=== PATIENT | male | born 1960 | race Caucasian/White ===

== ENCOUNTER → 2018-08-06 | Outpatient (CLI) | payer BC, OTHER | LOC: RAD 11:13 | DX: M25.461 Effusion, right knee (principal); M25.462 Effusion, left knee ==

== ENCOUNTER 2018-11-18 05:45 | Day surgery (SDC) | payer BC, OTHER ==
[~2018-11-18] VITALS: Ht 185.4 cm; Wt 127.0 kg
[~2018-11-18 05:45] MED LIST: ASPIR 8181 MG PO; FARXIGA10 MG PO; FENOFIBRIC ACI135 MG PO; LISINOPRIL40 MG PO; METFORMIN HCL1000 MG PO; MITIGARE0.6 MG PO; MOBIC7.5 MG PO; PERCOCET 7.5-31 EACH PO; SIMVASTATIN40 MG PO; TOPROL XL100 MG PO; VASCEPA1 GM PO; ZYLOPRIM300 MG PO
[2018-11-18 12:32] VITALS: BP 168/93
[2018-11-18] MEDS ORDERED: NORCO 5-325 TA1 EACH PO (13:49)
[2018-11-18 14:22] VITALS: BP 168/93
--- NOTE | 2018-11-19 08:35 | EKG ---
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 : 1960 Requested By: Juanpablo Perera Order Number: [id number] MD: Go Garrido Measurements Intervals Goehner Rate: 90 P: -37 NE: 203 QRS: -20 QRSD: 89 T: -3 QT: 336 QTc: 411 Interpretive Statements Sinus rhythm Borderline prolonged NE interval Inferior infarct, old Compared to ECG 04/13/2003 10:59:35 Inferior Q waves are more prominent Electronically Signed On 11-19-2018 8:35:36 CDT by Go Garrido [email or web address] ��������������������������������������������� <ELECTRONICALLY SIGNED> ���������������������������������������� By: Go Garrido MD, [facility] ��������������������������������������������� 11/19/18 0835 1153 1153 Go Garrido MD, [facility] /EPI
--- NOTE | 2018-12-03 11:20 | O ---
Former[facility] [place] [address] OPERATIVE REPORT Name: ERNESTO AYALA III [id number] Admission: 11/18/18 ������������������ Attend Phys: Juanpablo Perera MD Discharge: 11/18/18 ������������������ Date of : 58 Report #: [id number] THIS REPORT FOR: //name// CC: Berry Perera DATE OF SERVICE: 11/18/2018 PREOPERATIVE DIAGNOSIS: Right knee medial meniscus tear. POSTOPERATIVE DIAGNOSES: 1. Right knee medial meniscus tear. 2. Pathologic medial plica, right knee. 3. Grade 4 chondromalacia of the medial femoral condyle. PROCEDURE: 1. Right knee arthroscopy with partial medial meniscectomy. 2. Medial plica excision. SURGEON: Juanpablo ePrera MD. EGG SEPARATOR: Komal Ellis PA-C. ANESTHESIA: LMA. TOURNIQUET TIME: Approximately 15 minutes. COMPLICATIONS: None. SPECIMENS: None. CONDITION UPON LEAVING THE OPERATING ROOM: Stable. INDICATIONS FOR PROCEDURE: The patient is a 58-year-old gentleman who has had medial-sided right knee pain. He had an MRI scan shown him to have a tear of the posterior horn of the medial meniscus and after discussion with him, he elected for right knee arthroscopy with partial medial meniscectomy and debridement as needed. DESCRIPTION OF PROCEDURE: Risks, benefits, alternatives and complications were discussed in detail with the patient including but not limited to risk of anesthesia, risk of damage to nerves, arteries, blood vessels, risk for infection, bleeding, risk for continued knee pain, need for reoperation. Informed consent was obtained from the patient. Right knee was appropriately marked in the preoperative holding area. IV Ancef was given for preoperative antibiotics. He was brought to the operating room and placed in supine position [address] [address] OPERATIVE REPORT Name: JAMIEERNESTO Lorenza SARAN Room #: DEP [facility] Matt#: [id number] Admission: 11/18/18 ������������������ Attend Phys: Juanpablo Perera MD Discharge: 11/18/18 ������������������ Date of : 58 Report #: [id number] on the operating room table. LMA anesthesia was induced without complication. Tourniquet was placed on the right thigh. Right lower extremity was prepped and draped in normal sterile fashion. Timeout was performed properly identifying the patient and procedure as well as instrumentation. All in the operating room were in agreement. Right lower extremity was exsanguinated, tourniquet was inflated. Tourniquet time was approximately 15 minutes. Standard anterolateral portal was established with an 11 blade through the skin. Arthroscope was introduced into the patellofemoral compartment, diagnostic arthroscopy was undertaken. Patellofemoral compartment was visualized and found to have grade 2 chondromalacia of the patella. Medial gutter was visualized and found to have a thickened medial plica. Medial compartment was visualized and medial portal was established under arthroscopic visualization. Probe was introduced into the medial compartment. There was noted to be a complex tear of the posterior horn of the medial meniscus. This was trimmed back to the stable rim with an arthroscopic biter and smoothed back with a shaver. In addition, there was a large area of grade 4 chondromalacia of the medial femoral condyle. Notch was visualized and found to have an intact anterior cruciate ligament. Lateral compartment was visualized and found to have an intact lateral meniscus. Scope was placed back in the patellofemoral compartment and the medial plica was excised with the oscillating shaver. After this, all fluid was allowed to drain from the knee. Knee was injected with 10 mL of 0.5% Marcaine. Incision was closed with 3-0 nylon. Soft dressing of Adaptic, 4 x 4, Webril, Vinayak wrap were applied. The patient tolerated this procedure well and went to recovery room under care of Anesthesia postoperatively. ��������������������������������������������� <ELECTRONICALLY SIGNED> ���������������������������������������� By: Juanpablo Perera MD ��������������������������������������������� 12/03/18 1120 1355 1526 Juanpablo Perera MD /nt
[2018-12-25] MEDS ORDERED: PRILOSEC 20 MG20 MG PO (10:33)
== END 2018-11-18 15:00 | disposition home or self-care (01) ==
LOC: OR 05:45 → TBA 05:45 → OR 11:48
DX: S83.241A Other tear of medial meniscus, current injury, right knee, initial encounter (principal); M67.51 Plica syndrome, right knee; M94.261 Chondromalacia, right knee; I10 Essential (primary) hypertension; E11.9 Type 2 diabetes mellitus without complications; E78.5 Hyperlipidemia, unspecified; G47.33 Obstructive sleep apnea (adult) (pediatric); K21.9 Gastro-esophageal reflux disease without esophagitis; Z87.442 Personal history of urinary calculi; Z98.890 Other specified postprocedural states; Z79.899 Other long term (current) drug therapy; Z79.82 Long term (current) use of aspirin; X58.XXXA Exposure to other specified factors, initial encounter; Y93.89 Activity, other specified; Y92.89 Other specified places as the place of occurrence of the external cause; Y99.8 Other external cause status
CPT/HCPCS: 50010; 50101; 50405; 50717; 51038; 54170; 56526; 57103; 57180; 62110; 62900; 70005

== ENCOUNTER 2019-01-07 05:29 | Day surgery (SDC) | payer BC, OTHER ==
[2018-12-30 08:57] LABS: URINE BILIRUBIN NEGATIVE (Negative); URINE BLOOD NEGATIVE (Negative); URINE CLARITY CLEAR; URINE COLOR YELLOW; URINE GLUCOSE-RANDOM* 3+ (Negative); URINE KETONES NEGATIVE (Negative); URINE LEUKOCYTES-REFLEX NEGATIVE (Negative); URINE NITRITE-REFLEX NEGATIVE (Negative); URINE PROTEIN (DIPSTICK) NEGATIVE (Negative); URINE SPECIFIC GRAVITY 1.025 (1.005-1.035); URINE UROBILINOGEN 0.2 E.U./dl (0.2-1.0)
[2018-12-30 09:03] LABS: HEMATOCRIT 46.3 % (42.0-52.0); HEMOGLOBIN 15.7 gm/dL (14.0-18.0); MCH 30.7 pg (26.0-34.0); MCV 90.2 fL (80.0-100.0); RBC 5.13 mil/uL (4.50-6.00); RDW 13.9 % (10.5-14.5)
[2018-12-30 09:10] LABS: CALCIUM 9.5 mg/dL (8.5-10.1); CREATININE 0.8 mg/dL (0.7-1.3); POTASSIUM 3.8 mmol/L (3.5-5.1); PROTIME 10.8 Seconds (9.3-11.4)
[2018-12-30 23:07] LABS: GLYCOHEMOGLOBIN (HGB A1C) 7.6 % (4.8-5.6)
[~2019-01-07] VITALS: Ht 185.4 cm; Wt 124.7 kg
--- NOTE | ~2019-01-07 | O ---
[facility] [place] [address] OPERATIVE REPORT Name: ERNESTO AYALA III Room #: 150-3 [facility] M..#: [id number] Admission: 01/07/19 ������������������ Attend Phys: Juanpablo Perera MD Discharge: ������������������ Date of : 58 Report #: [id number] THIS REPORT FOR: //name// CC: Berry Perera DATE OF SERVICE: 01/07/2019 PREOPERATIVE DIAGNOSIS: Right knee osteoarthritis. POSTOPERATIVE DIAGNOSIS: Right knee osteoarthritis. PROCEDURE: Right total knee arthroplasty using Navio robotic assistance. SURGEON: Juanpablo Perera M.D. UPPER AND BOTTOM LACER HAND: Komal Ellis PA-C. INDICATION FOR UPPER AND BOTTOM LACER HAND: Throughout the case, extensive retraction and manipulation of the knee was required. This was afforded to me by my promotions assistant sales marketing. ANESTHESIA: LMA with an adductor canal block. IMPLANTS USED: Olivas [employer] Nephew size 8 Journey II BCS Oxinium posterior stabilized femur, a size 7 tibia, size 9 polyethylene and size 38 patella. TOURNIQUET TIME: 75 minutes. ESTIMATED BLOOD LOSS: 25 mL. COMPLICATIONS: None. SPECIMENS: None. CONDITION UPON LEAVING THE OPERATING ROOM: Stable. INDICATIONS FOR PROCEDURE: The patient is a 58-year-old gentleman with right knee osteoarthritis and pseudogout. He failed conservative management for this and after discussion with him, he elected for right total knee arthroplasty. DESCRIPTION OF PROCEDURE: Risks, benefits, alternatives and complications were discussed in detail with the patient including, but not limited to risk of anesthesia; risk of damage to nerves, arteries, blood vessels; risk for infection or bleeding; risk for continued knee pain and need for reoperation. Informed consent was obtained from the patient. The knee was appropriately marked in the preoperative holding area. IV Ancef was given for preoperative [address] [place] [address] OPERATIVE REPORT Name: ERNESTO AYALA [facility] [address] Room #: 150-3 [facility] Matt#: [id number] Admission: 01/07/19 ������������������ Attend Phys: Juanpablo Perera MD Discharge: ������������������ Date of : 58 Report #: [id number] antibiotics. He was brought to the operating room and placed in supine position on the operating room table. LMA anesthesia was induced without complication. Tourniquet was placed on the right thigh. Right lower extremity was prepped and draped in normal sterile fashion. Timeout was performed, properly identifying the patient and procedure as well as the instrumentation and implants. All in the operating room were in agreement. Right lower extremity was exsanguinated, tourniquet was inflated. Tourniquet time was 75 minutes. Standard midline approach to the knee was made with 10 blade through the skin. Dissection was taken down sharply to the fascia and deep flaps were developed medially and laterally. A fresh 10 blade was used to make a medial parapatellar arthrotomy and the knee was inspected. There was severe medial compartment osteoarthritis with moderate patellofemoral osteoarthritis. ACL and PCL were removed sharply. Reference pins were then placed in the femur and the tibia and the knee was digitally mapped using the Betyah robotic system and sized to size 8 femur and a size 7 tibia with a 10 polyethylene space. After acceptance of the intraoperative plan, the distal femoral cut was made with a Navio bur and then the femoral cutting block was pinned in place. Chamfer cuts were then made on the femur. Attention was then turned to the tibia. The knee was flexed. Tibia subluxed anteriorly. The remainder of the menisci was removed with Bovie cautery. Tibial resection guide was pinned in place using the Betyah system for placement and tibial resection was made. After this, flexion and extension gaps were checked and found to be slightly tight medial in extension and a limited medial release was performed using the pie-crust technique. This balanced the knee well. Tibia was then sized and found to be a size 7. A size 7 tibial trial was placed, pinned and punched. A size 8 femoral trial was placed and box cut was made. This was then trialed with a size 9 polyethylene. Knee was taken through range of motion and found to have a millimeter of laxity medially throughout right range of motion, both manually as well as digitally and 1.5 to 2 mm of laxity laterally. This was felt to be acceptable. A 9 mm was taken off the posterior surface of the patella and a size 38 patellar trial button was placed. Knee was taken through range of motion and found to be stable and found to have good patellar tracking. After this, trial components were removed. Bony ends were thoroughly irrigated with normal saline. A final size 7 tibia, size 8 Journey II BCS Oxinium posterior stabilized femur and a size 38 patella were cemented in place using standard cementation techniques. While the cement cured, a periarticular injection consisting of morphine, ropivacaine, epinephrine and Toradol was placed around the joint capsule. After the cement cured, tourniquet was deflated. Hemostasis was obtained with Bovie cautery. Final size 9 polyethylene was placed. A gram of vancomycin was placed deep in the joint. Fascia was closed with 0 Vicryl, skin was closed with 2-0 Vicryl and 3-0 Monocryl. Dermabond and a JAIME dressing were applied. The patient [address] [address] OPERATIVE REPORT Name: ERNESTO AYALA III Room #: 150-[address] [facility] M.R.#: [id number] Admission: 01/07/19 ������������������ Attend Phys: Juanpablo Perera MD Discharge: ������������������ Date of : 58 Report #: [id number] tolerated this procedure well and went to recovery room under the care of Anesthesia postoperatively. ��������������������������������������������� ���������������������������������������� By: ��������������������������������������������� 1054 1140 Juanpablo Perera MD /nt
[~2019-01-07 05:29] MED LIST changes: +NORCO 5-325 TA1 EACH PO; +PRILOSEC 20 MG20 MG PO
[2019-01-07 07:31] VITALS: BP 145/85
[2019-01-07 14:57] VITALS: BP 145/85
== END 2019-01-07 15:30 | disposition home or self-care (01) ==
LOC: TBA 05:29 → OR 05:29
PROVIDERS: Orthopaedic Surgery
DX: M17.11 Unilateral primary osteoarthritis, right knee (principal); I10 Essential (primary) hypertension; E11.9 Type 2 diabetes mellitus without complications; E78.5 Hyperlipidemia, unspecified; K21.9 Gastro-esophageal reflux disease without esophagitis; G47.33 Obstructive sleep apnea (adult) (pediatric); Z91.041 Radiographic dye allergy status; Z98.890 Other specified postprocedural states; Z79.899 Other long term (current) drug therapy; Z87.442 Personal history of urinary calculi; Z79.82 Long term (current) use of aspirin
CPT/HCPCS: 50010; 50101; 50415; 50954; 51130; 51225; 53000; 53078; 54118; 55372; 56527; 56528; 57095; 57103; 57110; 57127; 62110; 62900; 65060; 70005